=== PATIENT | female | born 1970 | race Two or more races ===

== ENCOUNTER 2018-08-06 23:35 | Inpatient (IN) | payer MEDICAID ==
[~2018-08-06] VITALS: Ht 167.6 cm; Wt 106.4 kg
--- NOTE | 2018-08-07 00:18 | NUR ---
Pt placed in room 4B. Pt ambulates to ER with c/o burning, itchiness, redness to both bilateral lower extremities kd rt lower extremity x 1 week. Denies fever/chills.
--- NOTE | 2018-08-07 00:31 | NUR ---
Dr. Alexander CHANG MD at bedside to evaluate pt.
[2018-08-07] MEDS ORDERED: DEXAMETHASONE SOD PHOSPHATE 4 MG INJ IV ONE (00:45)
[2018-08-07] MEDS ORDERED: CLINDAMYCIN PHOSPHATE IV 600 MG in IV DEXTROSE 5% 100 ML IV ONE (00:45)
[2018-08-07] MEDS ORDERED: DEXAMETHASONE SOD PHOSPHATE 10 MG INJ ONE (00:52)
[2018-08-07] MEDS ORDERED: CLINDAMYCIN PHOSPHATE 600 MG/4 ML VIAL ONE (00:52)
[2018-08-07 01:01] LABS: BASOPHILS # (AUTO) 0.1 K/uL (0.0-8.0); BASOPHILS % (AUTO) 1.7 % (0.0-2.0); EOSINOPHILS # (AUTO) 0.2 K/uL (0.0-0.7); EOSINOPHILS % (AUTO) 3.1 % (0.0-7.0); HEMATOCRIT 34.9 % (31.2-41.9); LYMPHOCYTES # (AUTO) 1.6 K/uL (20.0-40.0); LYMPHOCYTES % (AUTO) 29.3 % (20.5-51.5); MEAN CORPUSCULAR HGB CONC 34 g/dL (32.3-35.6); MEAN CORPUSCULAR VOLUME 87.2 fL (75.5-95.3); MONOCYTES # (AUTO) 0.3 K/uL (2.0-10.0); MONOCYTES % (AUTO) 5.8 % (0.0-11.0); NEUTROPHILS # (AUTO) 3.2 K/uL (1.8-8.9); NEUTROPHILS % (AUTO) 60.1 % (38.5-71.5); PLATELET COUNT (AUTO) 295 K/uL (179-408); RED BLOOD CELL COUNT(AUTO) 4.01 MIL/uL (3.63-4.92); WHITE BLOOD COUNT (AUTO) 5.4 K/uL (3.8-11.8)
--- NOTE | 2018-08-07 01:06 | NUR ---
Dr. Munoz at bedside for update/re-evaluation.
[2018-08-07 01:17] LABS: CREATININE 0.7 mg/dL (0.6-1.3); POTASSIUM 3.6 mmol/L (3.5-5.1)
[2018-08-07 01:37] LABS: BILIRUBIN,DIRECT 0.1 mg/dL (0.0-0.2); BILIRUBIN,TOTAL 0.2 mg/dL (0.2-1.0)
[2018-08-07] MEDS ORDERED: IV NORMAL SALINE 1000 ML BAG IV ONE (02:00)
--- NOTE | 2018-08-07 02:44 | NUR ---
Xray at bedside.
--- NOTE | 2018-08-07 03:11 | NUR ---
Dr. Munoz at bedside for update/re-evaluation
--- NOTE | 2018-08-07 03:52 | NUR ---
Paged [facility] for panel call. [facility]
--- NOTE | 2018-08-07 03:54 | NUR ---
Dr[facility]
[2018-08-07] MEDS ORDERED: Z GUARD REMEDY PASTE 57 GM TUBE TOP PRN (04:00)
[2018-08-07] MEDS ORDERED: HYDROCODONE/APAP 5-325MG TABLET PO PRN (04:00)
[2018-08-07] MEDS ORDERED: MAGNESIUM HYDROXIDE 30 ML LIQUID UDC PO PRN (04:00)
[2018-08-07] MEDS ORDERED: ONDANSETRON 4 MG/2 ML VIAL IV PRN (04:00)
[2018-08-07] MEDS ORDERED: ACETAMINOPHEN 325 MG TABLET PO PRN (04:00)
--- NOTE | 2018-08-07 04:45 | NUR ---
Pt. admitted to Med/Surg , under care of Dr. Mcmahon. Diagnosis: Cellulitis. Belongs List completed. Report given to charge nurse.
--- NOTE | 2018-08-07 06:00 | NUR ---
PATIENT ADMITTED TO UNIT. MEDICAL HISTORY, FAMILY HISTORY AND MEDICATION TAKEN AT HOME GONE OVER WITH PATIENT. PATIENT AWAKE, AOX4. L AC IV FLUSHED AND INTACT. DENIES PAIN OR DISCOMFORT AT THIS TIME. ALL NEEDS MET. WILL CONTINUE TO MONITOR FOR SAFETY AND DISTRESS.
[2018-08-07] MEDS ORDERED: CLINDAMYCIN PHOSPHATE IV 600 MG in IV DEXTROSE 5% 100 ML IV SCH (07:00)
[2018-08-07] MEDS ORDERED: meclizine (08:03)
[2018-08-07] MEDS ORDERED: ALBU8.5H8 IH (08:42)
[2018-08-07] MEDS ORDERED: MECL-102 PO (08:42)
[2018-08-07] MEDS ORDERED: FURO20TA4 PO (08:42)
[2018-08-07] MEDS ORDERED: NEBI10TA2 PO (08:42)
[2018-08-07] MEDS ORDERED: PREG75CA PO (08:42)
[2018-08-07] MEDS ORDERED: POTA20PA40 PO (08:42)
[2018-08-07] MEDS ORDERED: IBUP-1957 PO (08:42)
[2018-08-07] MEDS ORDERED: ASPI-605 PO (08:42)
[2018-08-07] MEDS ORDERED: VALS1TAB4 PO (08:42)
[2018-08-07] MEDS ORDERED: SERT50TA PO (08:42)
[2018-08-07] MEDS ORDERED: LORA1TAB PO (08:42)
[2018-08-07] MEDS ORDERED: FLUT1BLS IH (08:42)
[2018-08-07] MEDS: CLINDAMYCIN PHOSPHATE IV 600 MG in IV DEXTROSE 5% 100 ML IV SCH ×2 (09:19→17:13)
[2018-08-07 11:55] VITALS: BP 105/69
[2018-08-07] MEDS ORDERED: ALBUTEROL SULFATE 8 GM HFA.AER.AD IH PRN (13:45)
[2018-08-07] MEDS ORDERED: ALBUTEROL SULFATE 2.5 MG/3 ML NEBU NEB PRN (14:00)
[2018-08-07] MEDS: FLUTICASONE/VILANTEROL 1 EACH BLST.W.DEV IH SCH (15:30)
[2018-08-07 16:20] VITALS: BP 109/58
[2018-08-07] MEDS ORDERED: Medication Not On Formulary EA (Pregabalin (Lyrica) 75 MG) PO SCH (17:00)
[2018-08-07] MEDS: PREGABALIN 25 MG CAPSULE PO SCH (17:13)
--- NOTE | 2018-08-07 18:50 | NUR ---
PATIENT AOX4 THROUGHOUT THE SHIFT. COMPLIANT WITH TREATMENT PLAN. ALL MEDICATIONS GIVEN ORDERED AND TOLERATED WELL. ALL NEEDS MET PROMPTLY. SAFETY PRECAUTIONS IN PLACE.
--- NOTE | 2018-08-07 20:00 | NUR ---
RECEIVED PATIENT AWAKE IN BED. A/O X4. DENIES PAIN OR DISCOMFORT. NO RESP. DISTRESS NOTED. H/L INTACT AND PATENT. CALL LIGHT IN REACH. ALL NEEDS ATTENDED. WILL CONTINUE TO MONITOR AND ASSESS.
[2018-08-07 20:12] VITALS: BP 95/50
--- NOTE | 2018-08-07 22:05 | NUR ---
Received report from outgoing nurse.
--- NOTE | 2018-08-07 22:10 | NUR ---
Sleeping during initial rounds. No s/s of respiratory distress. No s/s pain/discomforts noted. Safety measures and fall precaution maintained. Continue care as planned.
--- NOTE | 2018-08-07 22:15 | NUR ---
Patient sleeping during initial rounds. No s/s of respiratory distress noted. No s/s of pain/discomforts. Safety measures and fall precaution maintained. Continue care as planned.
[2018-08-08] MEDS: CLINDAMYCIN PHOSPHATE IV 600 MG in IV DEXTROSE 5% 100 ML IV SCH ×3 (00:40→17:00)
[2018-08-08 05:16] VITALS: BP 116/71
[2018-08-08 06:15] LABS: BASOPHILS # (AUTO) 0.1 K/uL (0.0-8.0); BASOPHILS % (AUTO) 0.8 % (0.0-2.0); EOSINOPHILS # (AUTO) 0.1 K/uL (0.0-0.7); EOSINOPHILS % (AUTO) 0.8 % (0.0-7.0); HEMATOCRIT 34.7 % (31.2-41.9); HEMOGLOBIN 11.8 g/dL (10.9-14.3); LYMPHOCYTES # (AUTO) 2.2 K/uL (20.0-40.0); LYMPHOCYTES % (AUTO) 22.8 % (20.5-51.5); MEAN CORPUSCULAR HEMOGLOBIN 29.7 uug (24.7-32.8); MEAN CORPUSCULAR HGB CONC 34 g/dL (32.3-35.6); MEAN CORPUSCULAR VOLUME 87.5 fL (75.5-95.3); MONOCYTES # (AUTO) 0.6 K/uL (2.0-10.0); MONOCYTES % (AUTO) 5.8 % (0.0-11.0); NEUTROPHILS # (AUTO) 6.8 K/uL (1.8-8.9); NEUTROPHILS % (AUTO) 69.8 % (38.5-71.5); PLATELET COUNT (AUTO) 277 K/uL (179-408); RED BLOOD CELL COUNT(AUTO) 3.96 MIL/uL (3.63-4.92); WHITE BLOOD COUNT (AUTO) 9.7 K/uL (3.8-11.8)
[2018-08-08 06:30] LABS: CREATININE 0.6 mg/dL (0.6-1.3); MAGNESIUM 1.7 mg/dL (1.8-2.4); PHOSPHOROUS 3.8 mg/dL (2.5-4.9); POTASSIUM 3.7 mmol/L (3.5-5.1)
--- NOTE | 2018-08-08 06:36 | NUR ---
Shift End Report: Slept well. No complaint presented all night. No fall/injury. All needs attended and met. No significant event reported. Continue current plan of care.
[2018-08-08] MEDS ORDERED: MAGNESIUM OXIDE 400 MG TABLET PO ONE (08:30)
[2018-08-08] MEDS ORDERED: SERTRALINE HCL 50 MG TABLET PO SCH (09:00)
[2018-08-08] MEDS ORDERED: ASPIRIN EC 81 MG TABLET.DR PO SCH (09:00)
[2018-08-08] MEDS: FLUTICASONE/VILANTEROL 1 EACH BLST.W.DEV IH SCH ×2 (09:31→09:46)
[2018-08-08] MEDS: PREGABALIN 25 MG CAPSULE PO SCH ×2 (09:45→18:56)
[2018-08-08 12:00] VITALS: BP 127/66
[2018-08-08] MEDS ORDERED: SIMV10TA6 PO (13:41)
[2018-08-08] MEDS ORDERED: CLIN300C11 PO (13:41)
[2018-08-08 16:08] VITALS: BP 124/71
--- NOTE | 2018-08-08 17:00 | NUR ---
Nursing- Patient claimed she does not want to go home until she sees Dr Patton. Informed she already has a prescription issued .reviewed medications, diet, safety emphasized, coopeartive and motivated. Deneis pain at this time. Discharge planning in progress.Fire Extinguisher Repairer was in this pm and was able to talked to patient.
--- NOTE | 2018-08-08 19:00 | NUR ---
Nursing- Dr Patton in to see patient, reviewed medications/prescriptions . Saline lock was dc'd at 1700, bandaid apply. Patient still plan to leave tonight ,claimed her sister who lives in [place] will pick her up.
--- NOTE | 2018-08-08 19:45 | NUR ---
RECEIVED REPORT THAT PATIENT IS TO BE DISCHARGED HOME. PATIENT AWAKE, SITTING AT BEDSIDE WITH FAMILY PRESENT. DENIES ANY PAIN OR DISCOMFORT. NO RESP. DISTRESS NOTED. VSS. ALL NEEDS ATTENDED.
--- NOTE | 2018-08-08 20:00 | NUR ---
PATIENT GIVEN RX AND DISCHARGE INSTRUCTIONS. VERBALIZED UNDERSTANDING.
--- NOTE | 2018-08-08 20:10 | NUR ---
PATIENT DISCHARGED HOME IN STABLE CONDITION. LEFT WITH FAMILY VIA PRIVATE CAR. ALL NEEDS ATTENDED.
[2018-08-08] MEDS ORDERED: SIMVASTATIN 10 MG TABLET PO SCH (21:00)
[2018-08-28] MEDS ORDERED: AZIT1PAC PO (12:49)
[2018-08-28] MEDS ORDERED: NITR0.4T SL (12:49)
== END 2018-08-08 20:15 | disposition home or self-care (01) | DRG 383 ==
LOC: ER 23:37 → MEDSURG3 08-07 04:49
PROVIDERS: ADMIT Family Medicine; ATTEND Internal Medicine
DX: L03.115 Cellulitis of right lower limb (principal); E11.9 Type 2 diabetes mellitus without complications; L03.116 Cellulitis of left lower limb; E78.5 Hyperlipidemia, unspecified; F17.211 Nicotine dependence, cigarettes, in remission; M21.961 Unspecified acquired deformity of right lower leg; S82.301S Unspecified fracture of lower end of right tibia, sequela; S82.831S Other fracture of upper and lower end of right fibula, sequela; X58.XXXS Exposure to other specified factors, sequela; Z82.5 Family history of asthma and other chronic lower respiratory diseases; Z83.3 Family history of diabetes mellitus; Z82.49 Family history of ischemic heart disease and other diseases of the circulatory system; Z90.49 Acquired absence of other specified parts of digestive tract; F32.9 Major depressive disorder, single episode, unspecified; F41.9 Anxiety disorder, unspecified
CPT/HCPCS: 36415; 70030-TC; 71045; 73590; 83605; 83735; 84100; 85025; 85730; 87040; 93005; A4663; G0378; J1100; J3490; J7030; J7050; J7060

== ENCOUNTER 2018-08-27 00:13 | Inpatient (IN) | payer MEDICAID ==
[~2018-08-27] VITALS: Ht 167.6 cm; Wt 106.1 kg
[~2018-08-27 00:13] MED LIST: ALBU8.5H8 IH; ASPI-605 PO; CLIN300C11 PO; FLUT1BLS IH; PREG75CA PO; SERT50TA PO; SIMV10TA6 PO
[2018-08-27] MEDS ORDERED: ASPIRIN 325 MG TABLET ONE (00:28)
[2018-08-27] MEDS ORDERED: NITROGLYCERIN 0.4 MG/TAB BOTTLE SL ONE ×2 (00:28→00:30)
[2018-08-27] MEDS ORDERED: ASPIRIN 325 MG TABLET PO ONE (00:30)
[2018-08-27] MEDS ORDERED: IV NORMAL SALINE 500 ML BAG IV ONE (00:30)
--- NOTE | 2018-08-27 00:30 | NUR ---
Patient ambulated with stable gait. AAOx4. Speech is clear, speaks in complete sentences. No neuro deficits noted. Patient came in for c/o chest pressure + SOB x 4 hours upon arrival. No GI/ distress. Patient in bed at lowest position, side rails upx2, call light within reach. Fall precautions implemented per protocol.
[2018-08-27 01:09] LABS: BASOPHILS % (AUTO) 0.4 % (0.0-2.0); EOSINOPHILS # (AUTO) 0.6 K/uL (0.0-0.7); EOSINOPHILS % (AUTO) 9.7 % (0.0-7.0); HEMATOCRIT 36.3 % (31.2-41.9); HEMOGLOBIN 12.3 g/dL (10.9-14.3); LYMPHOCYTES # (AUTO) 2.6 K/uL (20.0-40.0); LYMPHOCYTES % (AUTO) 44.3 % (20.5-51.5); MEAN CORPUSCULAR HEMOGLOBIN 30.5 uug (24.7-32.8); MEAN CORPUSCULAR HGB CONC 34 g/dL (32.3-35.6); MEAN CORPUSCULAR VOLUME 89.7 fL (75.5-95.3); MONOCYTES # (AUTO) 0.5 K/uL (2.0-10.0); MONOCYTES % (AUTO) 8.3 % (0.0-11.0); NEUTROPHILS # (AUTO) 2.2 K/uL (1.8-8.9); NEUTROPHILS % (AUTO) 37.3 % (38.5-71.5); PLATELET COUNT (AUTO) 186 K/uL (179-408); RED BLOOD CELL COUNT(AUTO) 4.04 MIL/uL (3.63-4.92); WHITE BLOOD COUNT (AUTO) 5.8 K/uL (3.8-11.8)
--- NOTE | 2018-08-27 01:14 | NUR ---
Patient asleep in bed at lowest position. NAD/VSS
[2018-08-27 01:25] LABS: CARBON DIOXIDE 20 mmol/L (21-32); CHLORIDE 108 mmol/L (98-107); CREATININE 0.6 mg/dL (0.6-1.3); GLUCOSE 125 mg/dL (74-106); POTASSIUM 3.8 mmol/L (3.5-5.1); UREA NITROGEN, BLOOD 9 mg/dL (7-18)
--- NOTE | 2018-08-27 01:42 | NUR ---
Dr. Herring speaking to Dr. Saldaña on telephone.
[2018-08-27 01:51] LABS: ALANINE AMINOTRANSFERASE 31 U/L (14-59); ALKALINE PHOSPHATASE 64 U/L (50-136); ASPARTATE AMINOTRANSFERASE 18 U/L (15-37); BILIRUBIN,DIRECT < 0.1 mg/dL (0.0-0.2); BILIRUBIN,TOTAL 0.2 mg/dL (0.2-1.0); TOTAL PROTEIN, SERUM 6.8 g/dL (6.4-8.2)
[2018-08-27] MEDS ORDERED: IV NS 1000 ML 1,000 ML IV PRN (01:56)
--- NOTE | 2018-08-27 01:57 | NUR ---
Report given to DAYAN Arzate TELE
[2018-08-27] MEDS ORDERED: HYDROCODONE/APAP 5-325MG TABLET PO PRN (02:00)
[2018-08-27] MEDS ORDERED: MAGNESIUM HYDROXIDE 30 ML LIQUID UDC PO PRN (02:00)
[2018-08-27] MEDS ORDERED: MORPHINE SULFATE 2 MG/1 ML DISP.SYRIN IV PRN (02:00)
[2018-08-27] MEDS ORDERED: Z GUARD REMEDY PASTE 57 GM TUBE TOP PRN (02:00)
[2018-08-27] MEDS ORDERED: ONDANSETRON 4 MG/2 ML VIAL IV PRN (02:00)
[2018-08-27 02:08] VITALS: BP 129/73
[2018-08-27] MEDS ORDERED: ALPRAZOLAM 0.25 MG TABLET PO PRN (02:15)
[2018-08-27] MEDS ORDERED: ALBUTEROL SULFATE 2.5 MG/3 ML NEBU NEB PRN (02:15)
--- NOTE | 2018-08-27 02:15 | NUR ---
Received patient via gurney, in stable condition, transferred to hospital bed. No acute distress noted. She is on room air, tolerated. She has an IV access at right antecubital vein, 20g, patent and intact. Currently, patient states chest pain is like 3-4/10, and describes it as pressure on chest, patient states she feels better compared to when she came in, her breathing is better as well. Oriented patient to unit and how to use call light and telephone. Instructed patient to informs us for worsening chest pain and shortness of breath. Bed in low position, locked, side rails up x 2, call light within reach. Noise and lights subdued. Will continue to monitor.
--- NOTE | 2018-08-27 02:17 | NUR ---
Patient transfered to TELE via gurney, in stable condition
[2018-08-27 03:28] VITALS: BP 125/63
--- NOTE | 2018-08-27 06:37 | NUR ---
Patient slept well after arriving in the unit. No complaints of worsening chest pain and difficulty breathing. Still on tele monitor, notes on sinus rhythm. IV access at right arm, still patent and intact. Attended all needs. Ensured safety and comfort.
--- NOTE | 2018-08-27 07:15 | NUR ---
received patient, on tele, sinus rhythm , patient was resting didnt report any chest pain, bed in low position, locked, will monitor, call light in reach
[2018-08-27] MEDS: PREGABALIN 25 MG CAPSULE PO SCH ×2 (08:27→18:11)
[2018-08-27] MEDS: SERTRALINE HCL 50 MG TABLET PO SCH (08:28)
[2018-08-27] MEDS: ASPIRIN 81 MG TAB.CHEW PO SCH (08:28)
[2018-08-27] MEDS ORDERED: Medication Not On Formulary EA (Pregabalin (Lyrica) 75 MG) PO SCH (09:00)
[2018-08-27] MEDS: ACETAMINOPHEN 325 MG TABLET PO PRN (09:27)
[2018-08-27] MEDS: FLUTICASONE/VILANTEROL 1 EACH BLST.W.DEV IH SCH (09:52)
[2018-08-27 11:55] VITALS: BP 139/72
[2018-08-27 16:05] VITALS: BP 160/66
--- NOTE | 2018-08-27 18:46 | NUR ---
NO COMPLAINTS OF CHEST PAIN THROUGHOUT SHIFT. PATIENT RECENTLY COMPLAINING OF DRY COUGH - BROKE HANDLER NOTIFIED AND NO ORDERS GIVEN. SR ON TELEMETRY. NO SOB. A/OX4, AMBULATORY. BED ALARM ON, CALL LIGHT WITHIN REACH OF PATIENT. SAFETY MEASURES IMPLEMENTED.
--- NOTE | 2018-08-27 19:30 | NUR ---
Received pt HOB elevated, alert, AxO x4. Discussed and reviewed plan of care with pt, pt verbalizes understanding. Pt denies chest pain or discomfort at this time. C/o of persistent cough since AM. No acute distress noted. Safe environment implemented, call light within reach. Will continue to monitor.
[2018-08-27 19:33] VITALS: BP 148/84
[2018-08-27] MEDS ORDERED: SIMVASTATIN 10 MG TABLET PO SCH (21:00)
[2018-08-27] MEDS ORDERED: BENZONATATE 100 MG CAPSULE PO PRN (22:00)
[2018-08-27] MEDS ORDERED: BENZONATATE 100 MG CAPSULE PO SCH (22:00)
[2018-08-27 23:58] VITALS: BP 144/56
[2018-08-28 03:23] VITALS: BP 147/88
--- NOTE | 2018-08-28 06:33 | NUR ---
No significant changes during shift. Pt has no complaints of pain or discomfort at this time. Cough med given x1 with effect during the night.
[2018-08-28 06:38] LABS: BASOPHILS # (AUTO) 0.1 K/uL (0.0-8.0); BASOPHILS % (AUTO) 1.5 % (0.0-2.0); EOSINOPHILS # (AUTO) 0.4 K/uL (0.0-0.7); EOSINOPHILS % (AUTO) 6.2 % (0.0-7.0); HEMATOCRIT 37.8 % (31.2-41.9); HEMOGLOBIN 12.8 g/dL (10.9-14.3); LYMPHOCYTES # (AUTO) 1.4 K/uL (20.0-40.0); LYMPHOCYTES % (AUTO) 20.7 % (20.5-51.5); MEAN CORPUSCULAR HEMOGLOBIN 30.1 uug (24.7-32.8); MEAN CORPUSCULAR HGB CONC 34 g/dL (32.3-35.6); MEAN CORPUSCULAR VOLUME 88.7 fL (75.5-95.3); MONOCYTES # (AUTO) 0.4 K/uL (2.0-10.0); MONOCYTES % (AUTO) 5.5 % (0.0-11.0); NEUTROPHILS # (AUTO) 4.5 K/uL (1.8-8.9); NEUTROPHILS % (AUTO) 66.1 % (38.5-71.5); PLATELET COUNT (AUTO) 187 K/uL (179-408); RED BLOOD CELL COUNT(AUTO) 4.26 MIL/uL (3.63-4.92); WHITE BLOOD COUNT (AUTO) 6.8 K/uL (3.8-11.8)
[2018-08-28 06:43] LABS: CREATININE 0.6 mg/dL (0.6-1.3); MAGNESIUM 1.6 mg/dL (1.8-2.4); POTASSIUM 4.4 mmol/L (3.5-5.1)
--- NOTE | 2018-08-28 08:00 | NUR ---
Orientation with DAYAN Lilly. All assessment and documentation reviewed by me.
[2018-08-28] MEDS: ASPIRIN 81 MG TAB.CHEW PO SCH (09:06)
[2018-08-28] MEDS: SERTRALINE HCL 50 MG TABLET PO SCH (09:06)
[2018-08-28] MEDS: PREGABALIN 25 MG CAPSULE PO SCH (09:06)
[2018-08-28] MEDS: FLUTICASONE/VILANTEROL 1 EACH BLST.W.DEV IH SCH (09:07)
[2018-08-28 11:50] VITALS: BP 140/67
[2018-08-28] MEDS ORDERED: NITR0.4T SL (12:49)
[2018-08-28] MEDS ORDERED: AZIT1PAC PO (12:49)
[2018-08-28] MEDS: ACETAMINOPHEN 325 MG TABLET PO PRN (13:23)
[2018-08-28] MEDS ORDERED: MAGNESIUM OXIDE 400 MG TABLET PO ONE (14:15)
--- NOTE | 2018-08-28 14:32 | NUR ---
Pt left with sister for discharge home. Discharge instructions provided and discussed with the pt. Meds reconciled by MD and reviewed with the pt. Pt verbalized understanding of discharge instructions and medications. All belongings reviewed and brought with the pt. PIV removed. Pharmacy teaching provided regarding discharge prescriptions and medications. Pt stable and nad noted upon leaving the floor.
== END 2018-08-28 14:30 | disposition home or self-care (01) | DRG 203 ==
LOC: ER 00:17 → TELE3 01:59
PROVIDERS: ADMIT Nurse Practitioner Acute Care; ATTEND Nurse Practitioner Acute Care
DX: M94.0 Chondrocostal junction syndrome [Tietze] (principal); E44.1 Mild protein-calorie malnutrition; I20.9 Angina pectoris, unspecified; E66.01 Morbid (severe) obesity due to excess calories; E78.5 Hyperlipidemia, unspecified; Z79.82 Long term (current) use of aspirin; E11.9 Type 2 diabetes mellitus without complications; F41.0 Panic disorder [episodic paroxysmal anxiety]; I10 Essential (primary) hypertension; Z68.37 Body mass index [BMI] 37.0-37.9, adult; F32.9 Major depressive disorder, single episode, unspecified; Z87.891 Personal history of nicotine dependence; J98.8 Other specified respiratory disorders; J22 Unspecified acute lower respiratory infection
CPT/HCPCS: 36415; 70030-TC; 71045; 83735; 84100; 85025; 85730; 93005; 93307; A4663; G0378; J7030; J7040